=== PATIENT | male | born 1995 | race Caucasian/White ===

== ENCOUNTER 2018-01-15 19:05 | Emergency (ER) | payer MEDICAID ==
[~2018-01-15] VITALS: Ht 180.3 cm; Wt 69.9 kg
[2018-01-15 19:09] VITALS: BP 126/79
[2018-01-15] MEDS ORDERED: DIPH,PERTUSS(ACELL),TET VAC/PF 0.5 ML IM-VACC ONE (19:30)
[2018-01-15] MEDS ORDERED: ONDANSETRON ODT 4 MG PO ONE (20:30)
== END 2018-01-15 21:09 | disposition home or self-care (01) ==
LOC: ED 20:02
DX: S01.01XA Laceration without foreign body of scalp, initial encounter (principal); Z88.2 Allergy status to sulfonamides; Z88.1 Allergy status to other antibiotic agents; W22.8XXA Striking against or struck by other objects, initial encounter; Y93.89 Activity, other specified; Y92.89 Other specified places as the place of occurrence of the external cause; Y99.8 Other external cause status
CPT/HCPCS: 12001; 99283; Q0162

== ENCOUNTER 2018-01-21 00:59 | Emergency (ER) | payer MEDICAID ==
[~2018-01-21] VITALS: Ht 180.3 cm; Wt 71.0 kg
[2018-01-21] MEDS ORDERED: PROMETHAZINE 25 MG/ML, 1ML ONE (01:20)
[2018-01-21] MEDS ORDERED: PROMETHAZINE 25 MG/ML, 1ML IM ONE (01:30)
[2018-01-21 01:36] LABS: BASOPHILS # (AUTO) 0.03 x10^3/uL (0-0.1); BASOPHILS % (AUTO) 0 % (0-1); EOSINOPHILS # (AUTO) 0.19 x10^3/uL (0-0.4); EOSINOPHILS % (AUTO) 3 % (1-7); LYMPHOCYTES # (AUTO) 2.38 x10^3/uL (1-3.4); LYMPHOCYTES % (AUTO) 34 % (22-44); MD NO; MEAN CORPUSCULAR HEMOGLOBIN 29.8 pg (27.5-34.5); MEAN CORPUSCULAR VOLUME 87.8 fL (81-97); MEAN PLATELET VOLUME 8.4 fL (7.4-10.4); MONOCYTES # (AUTO) 0.54 x10^3/uL (0.2-0.8); MONOCYTES % (AUTO) 8 % (2-9); NEUTROPHILS # (AUTO) 3.92 x10^3/uL (1.8-6.8); NEUTROPHILS % (AUTO) 56 % (42-75); PLATELET COUNT 196 x10^3/uL (130-400); RED BLOOD COUNT 5.72 x10^6/uL (4.38-5.82); RED CELL DISTRIBUTION WIDTH 12.2 % (9.4-14.8)
[2018-01-21 01:39] LABS: ALANINE AMINOTRANSFERASE 19 U/L (12-78); ALBUMIN 3.3 g/dL (3.4-5.0); ANION GAP 7 mmol/L (5-15); CALCIUM 8.4 mg/dL (8.5-10.1); CHLORIDE 108 mmol/L (98-107); CREATININE 1.09 mg/dL (0.7-1.3)
[2018-01-21 01:41] LABS: ALKALINE PHOSPHATASE 75 U/L (45-117); BILIRUBIN,TOTAL 0.4 mg/dL (0.2-1.0); TOTAL PROTEIN 6.1 g/dL (6.4-8.2)
[2018-01-21 02:55] VITALS: BP 125/74
== END 2018-01-21 02:57 | disposition home or self-care (01) ==
LOC: ED 02:00
DX: R11.2 Nausea with vomiting, unspecified (principal); R10.13 Epigastric pain; R10.12 Left upper quadrant pain
CPT/HCPCS: 36415; 80053; 83690; 85025; 93005; 96372; 99285; J2550

== ENCOUNTER 2018-09-10 21:28 | Emergency (ER) | payer MEDICAID ==
[~2018-09-10] VITALS: Ht 180.3 cm; Wt 71.5 kg
[2018-09-10] MEDS ORDERED: ONDANSETRON ODT 4 MG PO ONE (22:00)
[2018-09-10 22:05] VITALS: BP 100/54
--- NOTE | 2018-09-10 22:07 | NUR ---
FIRST CONTACT WITH PT. PT STATES " 15 MINUTES AGO MY LEFT SIDE OF MY STOMACH WENT COLD AND NUMB. FEEL LIKE I NEED TO PUKE AND I AM DIZZY." PT DENIES V/D AT THIS TIME. PT'S AOX4. RESPS EVEN AND UNLABORED. BP/SPO2 MONITORS IN PLACE. CALL LIGHT WITHIN REACH.
[2018-09-10] MEDS ORDERED: ONDANSETRON ODT 4 MG ONE (22:09)
--- NOTE | 2018-09-10 22:11 | NUR ---
PT MEDICATED PER EMAR FOR NAUSEA. PT TOLERATED WELL.
--- NOTE | 2018-09-10 22:52 | NUR ---
PT GIVEN DC INSTRUCTIONS. PT'S AOX4. RESPS EVEN AND UNLABORED. PT AMB TO DC WITH STEADY GAIT. NO ACUTE DISTRESS AT DC.
== END 2018-09-10 22:53 | disposition home or self-care (01) ==
LOC: ED 22:47
DX: R11.0 Nausea (principal)
CPT/HCPCS: 99282; Q0162